=== PATIENT | female | born 1995 | race Caucasian/White ===

== ENCOUNTER 2017-09-27 06:49 | Emergency (ER) | payer OTHER ==
[~2017-09-27] VITALS: Ht 154.9 cm; Wt 66.2 kg
[2017-09-27 06:53] VITALS: BP 96/66
--- NOTE | 2017-09-27 07:00 | NUR ---
pt taken to er bed 2 by wheelchair
--- NOTE | 2017-09-27 07:02 | NUR ---
PATIENT PRESENTS TO ED WITH C/O DROPPED WEIGHT ON RT FOOT THIS AM AT GYM. DENIES N/V/D; SKIN IS PINK/WARM/DRY; AAOX4 WHEEL CHAIR ASSISTED TO BED 2; LUNGS CLEAR BL; HR EVEN AND REGULAR; PT DENIES ANY FEVER, CP, SOB, OR COUGH AT THIS TIME; PATIENT STATES PAIN OF 8/10 AT THIS TIME; VSS; PATIENT POSITIONED FOR COMFORT; HOB ELEVATED; BEDRAILS UP X2; BED DOWN. ER MD MADE AWARE OF PT STATUS.
--- NOTE | 2017-09-27 07:10 | NUR ---
[employer] HELPER AT BEDSIDE FOR XRAY ON HER RT FOOT
[2017-09-27] MEDS ORDERED: KETOROLAC 30 MG/ML VIAL IM ONE (08:25)
[2017-09-27 08:50] VITALS: BP 128/59
--- NOTE | 2017-09-27 08:50 | NUR ---
Patient discharged with v/s stable. Written and verbal after care instructions given and explained. Patient alert, oriented and verbalized understanding of instructions. Ambulatory WITH CRUTCHES. All questions addressed prior to discharge. ID band removed. Patient advised to follow up with PMD. Rx of MOTRIN given. Patient educated on indication of medication including possible reaction and side effects. Opportunity to ask questions provided and answered.
== END 2017-09-27 08:50 | disposition home or self-care (01) ==
LOC: MED 06:49
DX: S90.31XA Contusion of right foot, initial encounter (principal); W20.8XXA Other cause of strike by thrown, projected or falling object, initial encounter; Y93.89 Activity, other specified; Y99.8 Other external cause status; Y92.89 Other specified places as the place of occurrence of the external cause
CPT/HCPCS: 73630; 96372; 99284; J1885

== ENCOUNTER 2022-01-21 17:31 | Emergency (ER) | payer OTHER ==
[~2022-01-21] VITALS: Ht 154.9 cm; Wt 78.9 kg
[2022-01-21 17:52] VITALS: BP 129/97
--- NOTE | 2022-01-21 18:01 | NUR ---
Patient ambulated to lobby with steady/even gait.
[2022-01-21] MEDS ORDERED: methocarbamoL 500 MG TAB PO STA (19:36)
[2022-01-21] MEDS ORDERED: KETOROLAC 15 MG/ML VIAL IM ONE (19:40)
[2022-01-21] MEDS ORDERED: HYDROcodone/APAP 5/325 MG 1 TAB TAB PO ONE (19:40)
--- NOTE | 2022-01-21 20:19 | NUR ---
PT TAKEN TO CHAIR
--- NOTE | 2022-01-21 20:19 | NUR ---
Dr. Martinez examining patient.
[2022-01-21] MEDS ORDERED: LID5T TP (20:49)
[2022-01-21] MEDS ORDERED: METH-1681 PO (20:49)
[2022-01-21] MEDS ORDERED: IBUP-2213 PO (20:49)
--- NOTE | 2022-01-21 20:52 | NUR ---
Patient discharged with v/s stable. Written and verbal after care instructions given and explained. Patient alert, oriented and verbalized understanding of instructions. Ambulatory with steady gait. All questions addressed prior to discharge. ID band removed. Patient advised to follow up with PMD. Rx of motrin, robaxin, lidoderm patch given. Patient educated on indication of medication including possible reaction and side effects. Opportunity to ask questions provided and answered.
== END 2022-01-21 20:52 | disposition home or self-care (01) ==
LOC: MED 17:31
DX: S16.1XXA Strain of muscle, fascia and tendon at neck level, initial encounter (principal); V49.88XA Car occupant (driver) (passenger) injured in other specified transport accidents, initial encounter; Y93.89 Activity, other specified; Y92.89 Other specified places as the place of occurrence of the external cause; Y99.8 Other external cause status
CPT/HCPCS: 96372; 99283; J1885